=== PATIENT | female | born 1975 | race African-American/Black ===

== ENCOUNTER 2024-01-22 07:45 | Inpatient (IN) | payer BC, OTHER ==
[2024-01-13 12:44] VITALS: BMI 27.7
[2024-01-22] MEDS ORDERED: BUPIVACAINE LIPOSOME/PF (EXPAREL) 266 MG/20 ML VIAL ONE (10:09)
[2024-01-22] MEDS ORDERED: MIDAZOLAM HCL 2 MG/2 ML SINGLE DOSE VIAL ONE ×3 (10:09→11:10)
[2024-01-22] MEDS ORDERED: BUPIVACAINE HCL/PF 2.5 MG/ML - 30 ML VIAL IJ ONE (10:09)
[2024-01-22] MEDS ORDERED: FENTANYL CITRATE/PF 50 MCG/ML VIAL ONE (10:10)
[2024-01-22] MEDS ORDERED: ONDANSETRON 4 MG/2 ML VIAL ONE (10:32)
[2024-01-22] MEDS ORDERED: ceFAZolin SODIUM 1 GM VIAL ONE (10:39)
[2024-01-22] MEDS ORDERED: SUCCINYLCHOLINE CHLORIDE 200 MG/10 ML SYRINGE ONE (10:43)
[2024-01-22] MEDS ORDERED: PROPOFOL 20 ML ONE (10:43)
[2024-01-22] MEDS ORDERED: ONDANSETRON 4 MG/2 ML VIAL IVPUSH PRN (11:56)
[2024-01-22] MEDS ORDERED: oxyCODONE HCL 5 MG TABLET PO PRN (11:56)
[2024-01-22] MEDS: ACETAMINOPHEN 1000 MG/100 ML BAG IVPB ONE (13:28)
[2024-01-22] MEDS ORDERED: MAG HYDROX/AL HYDROX/SIMETH 30 ML UNIT-DOSE CUP PO PRN (13:38)
[2024-01-22] MEDS ORDERED: MAGNESIUM HYDROX 2400MG/30ML ORAL SUSPENSION 30 ML CUP PO PRN (13:38)
[2024-01-22] MEDS: TRANEXAMIC ACID 1000 MG/10 ML VIAL IVPUSH ONE (16:00)
[2024-01-22] MEDS: KETOROLAC TROMETHAMINE 30 MG/1 ML VIAL IVPUSH SCH (16:03)
[2024-01-22] MEDS: LACTATED RINGERS SOLUTION 1,000 ML IV SCH (16:03)
[2024-01-22] MEDS: oxyCODONE HCL 5 MG TABLET PO PRN (16:56)
[2024-01-22] MEDS: CEFAZOLIN SODIUM 2 GM in DEXTROSE 5%-WATER 100 ML IVPB SCH (17:02)
[2024-01-22] MEDS: ASPIRIN 81 MG CHEWABLE TABLETS PO SCH (21:20)
[2024-01-22] MEDS: TRANEXAMIC ACID 1000 MG/10 ML VIAL IVPB SCH (21:20)
[2024-01-22] MEDS: FAMOTIDINE 20 MG TABLET PO SCH (21:21)
[2024-01-22] MEDS: DEXAMETHASONE 4 MG TABLET (FP) PO SCH (21:21)
[2024-01-22] MEDS: SENNOSIDES/DOCUSATE COMBO (SENNA PLUS) TABLET (UD) PO SCH (21:21)
[2024-01-22] MEDS: ACETAMINOPHEN 1000 MG/100 ML BAG IVPB SCH (21:26)
[2024-01-22] MEDS: ONDANSETRON 4 MG/2 ML VIAL IVPUSH PRN (21:58)
[2024-01-23 09:07] VITALS: RESP 18
[2024-01-23] MEDS: TRANEXAMIC ACID - 1,000 MG in SODIUM CHLORIDE 50 ML IVPB SCH (09:11)
[2024-01-23] MEDS: AMITRIPTYLINE HCL PO SCH (09:12)
[2024-01-23] MEDS: MULTIVITAMINS (DAILY MVI) TABLET (FP) PO SCH (09:12)
[2024-01-23] MEDS ORDERED: PATIENT'S OWN MEDICATION (NON-FORMULARY) (Tizanidine Hcl [Tizanidine Hcl] 4 MG Tablet) PO SCH (10:00)
[2024-01-23] MEDS ORDERED: AMITRIPTYLINE HCL PO SCH (10:00)
[2024-01-23] MEDS: ACETAMINOPHEN 500 MG TABLET (FP) PO SCH (11:05)
[2024-01-23] MEDS: KETOROLAC TROMETHAMINE 30 MG/1 ML VIAL IVPUSH ONE (12:37)
[2024-01-23 13:05] VITALS: BP 125/77; PULSE 86; TEMP 98.5
== END 2024-01-23 16:50 | disposition home or self-care (01) | DRG 302 ==
LOC: FASUSAT 07:45 → FM/S 13:38
PROVIDERS: ADMIT Orthopaedic Surgery; ATTEND Orthopaedic Surgery
PROC: 0SRC0JZ Replacement of Right Knee Joint with Synthetic Substitute, Open Approach (ICD-10-PCS; principal; 2024-01-22 11:01)
DX: M17.11 Unilateral primary osteoarthritis, right knee (principal)
CPT/HCPCS: 73560-TC-RT-FY; 94760; 97010-GP; 97116-GP; 97162-GP; C1776; C1889; J0131